=== PATIENT | female | born 1945 | race Caucasian/White ===

== ENCOUNTER 2017-07-04 17:01 | Emergency (ER) | payer MEDICARE, BC ==
--- NOTE | ~2017-07-04 | ER ---
PATIENT'S NAME: JEAN-CLAUDE PINTO [facility] AGE: 71 Y [address] ROOM: [place] [id number] LOCATION: [facility] ADMIT DATE: 07/04/2017 ER/Outpatient Report DISCHARGE DATE: 07/04/2017 FAMILY PHYSICIAN: PHYSICIAN, NO ATTENDING PHYSICIAN: Mika Florian Time of arrival: 1725 hours. Time of Evaluation: 1730 hours. CHIEF COMPLAINT: Fall. HISTORY OF PRESENT ILLNESS: The patient states just prior to arrival, she was helping working on a ceiling fan, she was standing on the top step of a three step stool, when she fell injuring her left foot and receive an abrasion to the left thigh area. She states she did not hit her head, did not have any loss of consciousness. Denies having any neck, head, or back pain. She states she was not able to walk due to the pain of the left foot. ALLERGIES: SHE HAS NO KNOWN ALLERGIES. CURRENT MEDICATIONS: On her chart and reviewed by me. PAST MEDICAL HISTORY: Acid reflux. PAST SURGICAL HISTORY: Trigger-point release. SOCIAL HISTORY: She presents to the ER accompanied by her . She denies use of tobacco, drugs, or alcohol. States [facility] is where she gets her primary care. Last tetanus shot was greater than 10 years ago. REVIEW OF SYSTEMS: Negative other than those mentioned in the HPI. PHYSICAL EXAMINATION: VITAL SIGNS: She weighed 91.5 kg. Blood pressure is 174/79, pulse of 88, respirations 16, temperature of 98.7 tympanic, O2 saturation is 98% on room air. GENERAL: She is awake, alert, and oriented x4. PATIENT'S NAME: JEAN-CLAUDE PINTO [facility] AGE: 71 Y [address] ROOM: [place] [address] LOCATION: [facility] ADMIT DATE: 07/04/2017 ER/Outpatient Report DISCHARGE DATE: 07/04/2017 FAMILY PHYSICIAN: PHYSICIAN, NO ATTENDING PHYSICIAN: Mika Florian SKIN: [place], warm, and dry. RESPIRATIONS: Even and nonlabored. Lung sounds are clear throughout. HEART: Regular rate and rhythm. EXTREMITIES: She denies any pain when the hip and pelvis area are palpated. She does have an abrasion to the left anterior thigh area that is at least 12 cm long. She has swelling and bruising of the left foot. She is tender to palpate on the anterior metatarsal area. She does have a strong pedal pulse. It is tender to flex or extend her foot. She is able to wiggle her toes, but it is painful. The foot area is soft to palpate. EMERGENCY DEPARTMENT COURSE: X-ray was completed, reviewed with Dr. Florian. The patient has comminuted fractures of the left 2nd and 3rd metatarsals with displacement. There is no open area of skin on her foot. Dr. Remy was contacted per patient's request of Adeel Roy. He did review the x-rays, wants her to have a boot and then followup with Adeel Roy, Dr. Pedro. A Tdap was given to update the patient's tetanus. Walking boot was placed, crutches were sized and a crutch walking was instructed. IMPRESSION: Fractured left second and third distal metatarsals. PLAN: Home, rest, non-weight bearing, and ice to the foot. She is to wear the boot continuously. [facility] script was written for pain and she is to follow up with Adeel Roy tomorrow. She verbalized understanding. MIRNA JAMES APRN FOR [facility]/larissa /[id number] d: 07/05/17 0247 t: 07/09/17 0643, OUTPATIENT REPORT
== END 2017-07-04 18:50 | disposition disaster alternative care site (69) ==
LOC: GACC 17:01
DX: S92.322A Displaced fracture of second metatarsal bone, left foot, initial encounter for closed fracture (principal); S92.332A Displaced fracture of third metatarsal bone, left foot, initial encounter for closed fracture; S70.312A Abrasion, left thigh, initial encounter; K21.9 Gastro-esophageal reflux disease without esophagitis; Z79.899 Other long term (current) drug therapy; Z23 Encounter for immunization; W17.89XA Other fall from one level to another, initial encounter

== ENCOUNTER → 2017-07-05 | Outpatient (CLI) | payer MEDICARE, BC | END | disposition disaster alternative care site (69) | LOC: GRAD 13:00 | DX: S92.332A Displaced fracture of third metatarsal bone, left foot, initial encounter for closed fracture (principal); M79.89 Other specified soft tissue disorders; X58.XXXA Exposure to other specified factors, initial encounter ==